=== PATIENT | male | born 1955 | race Caucasian/White ===

== ENCOUNTER 2023-12-08 08:18 | Outpatient (RCR) | payer OTHER, SELFPAY | END 2023-12-08 23:59 | disposition home or self-care (01) | LOC: ROT 08:18 | PROVIDERS: ATTENDING PHYSICIAN Psychiatry & Neurology Neurology; FAMILY PHYSICIAN Family Medicine | DX: F07.81 Postconcussional syndrome (principal); R41.840 Attention and concentration deficit; R41.841 Cognitive communication deficit; R41.844 Frontal lobe and executive function deficit | CPT/HCPCS: 97129; 97130 ==

== ENCOUNTER → 2024-02-25 06:56 | Outpatient (REF) | payer OTHER, SELFPAY | LOC: RAD 06:56 | PROVIDERS: ATTENDING PHYSICIAN Psychiatry & Neurology Neurology; FAMILY PHYSICIAN Family Medicine | DX: F07.81 Postconcussional syndrome (principal) | CPT/HCPCS: 70450 ==

== ENCOUNTER → 2024-06-08 07:37 | Outpatient (REF) | payer OTHER, SELFPAY | LOC: EMG 07:37 | PROVIDERS: ATTENDING PHYSICIAN Family Medicine | DX: R20.0 Anesthesia of skin (principal) | CPT/HCPCS: 95886; 95911 ==